=== PATIENT | female | born 1985 ===

== ENCOUNTER 2017-09-16 04:01 | Inpatient (IN) | payer MEDICAID, SELFPAY ==
[2017-09-16 04:19] VITALS: BMI 25.4
[2017-09-16] MEDS ORDERED: Lidocaine 1% Inj (20ml) ONE (04:19)
[2017-09-16] MEDS ORDERED: Oxycodone/Acetaminophen 5/325 mg Tab PO PRN ×6 (04:25→15:42)
[2017-09-16] MEDS ORDERED: Lactated Ringer's 1,000 ML IV SCH (04:30)
[2017-09-16 05:56] LABS: BASO % 0.3 % (0.0-2.0); EOS % 0.3 % (0.0-4.0); HEMATOCRIT 38.6 % (34.0-47.0); LYMPH # 2.4 K/uL (1.0-4.3); LYMPH % 40.5 % (20.0-40.0); MEAN CELL VOLUME 93.7 fl (81.0-99.0); MEAN CORPUSCULAR HEMOGLOBIN 31.1 pg (27.0-31.0); MEAN CORPUSCULAR HGB CONC 33.1 g/dL (33.0-37.0); MEAN PLATELET VOLUME 11.5 fl (7.2-11.7); MONO # 0.4 K/uL (0.0-0.8); MONO % 6.5 % (0.0-10.0); NEUT % 52.4 % (50.0-75.0); NRBC % 0.1 % (0.0-0.0); WHITE BLOOD COUNT 5.8 K/uL (4.8-10.8)
[2017-09-16 06:05] VITALS: O2SAT 100
--- NOTE | 2017-09-16 07:58 | OBADHP ---
Datetime: 09/16/2017 05:26 Admit Comment, IP Provider: 32 y/o Female, , IUP@ 37.5 comes to the [facility] c/o ROM and CTX. +LOF, -BV, +FM, +CTX PNC: Dr. Mendoza PNL: GBS urine positive PMH: Denies PSH: Denies OB; Allg; Denies MEDS: PNV SH; denies alcohol, smoking and illicit drug use FH: denies A/P: 32 y/o Female, , IUP@ 37.5 comes to the [facility] c/o ROM and CTX. - Patient started pushing baby - Delivered in [facility] as soon as she entered in the room - GBS+ Urine, Never started Penicillin due to quick progression Case discussed with Dr. Price --- Manjula Gamino, PGY-1 Pelvic Type - PN: Adequate Extremities - PN: Normal Abdomen - PN: Normal Back - PN: Normal Breast - PN: Normal Lungs - PN: Normal Heart - PN: Normal Thyroid - PN: Normal Neurologic - PN: Normal HEENT - PN: Normal General - PN: Normal Comments, ACOG Physical Exam: GBS + urine HIV/RPR/HepB negative Patient delivered in [facility] Vital Signs Provider: Reviewed IP Chief Complaint: Uterine contractions Genitourinary Exam: Normal DTRs - PN: Normal EGA AdmitDate IP: 37.4 IP Adm Impression: Term, intrauterine IP Admit Plan: Admit to unit
--- NOTE | 2017-09-16 08:07 | OBDS ---
DELIVERY PERSONNEL Delivery Doctor: Cheo Price MD Maitre D: Kathi Khan RN Resident: Stevenson MATERNAL INFORMATION Delivery Anesthesia: None Medications in Delivery: None Estimated Blood Loss (ml): 150 Placenta Cultured: No Maternal Complications: Precipitous Labor (<3hrs) Provider Comments: Normal spontaneous vaginal delivery. Patient arrived at OB ED and precipitously delivered a viable infant male with Apgars of 9 and 9 a t one and 5 minutes respectively. Placenta delivered Spontaneously. No lacerations, perineum intact. Patient tolerated delivery well. medications. Blood loss 200 mL. LABOR SUMMARY EDC: 10/03/2017 00:00 No. Babies in Womb: 1 Attempted: No Labor Anesthesia: None LABOR INFORMATION Reason for Induction: Not Applicable Oxytocin: N/A Group B Beta Strep: Negative Steroids Given: None Reason Steroids Not Administered: Not Applicable MEMBRANES Membranes Rupture Method: Spontaneous Rupture of Membranes: 09/16/2017 02:00 Length of Rupture (hrs): 2.08 Amniotic Fluid Color: Clear Amniotic Fluid Amount: Moderate Amniotic Fluid Odor: Normal STAGES OF LABOR Stage 3 hrs: 0 Stage 3 min: 12 VAGINAL DELIVERY Episiotomy: None Laceration Extension: N/A Laceration Type: None Laceration Repair: Not Applicable Initial Vag Sponge Count: 5 Final Vag Sponge Count: 5 Initial Vag Sharps Count: 0 Final Vag Sharps Count: 0 Sponge Count Correct: Yes Sharps Count Correct: N/A BABY A INFORMATION Infant Delivery Date/Time: 09/16/2017 04:05 Method of Delivery: Vaginal Born in Route : No : N/A Forceps: N/A Vacuum Extraction: N/A Shoulder Dystocia : No SHOULDER DYSTOCIA BABY A Infant Delivery Date/Time: 09/16/2017 04:05 PRESENTATION/POSITION BABY A Presentation: Cephalic Cephalic Presentation: Vertex PLACENTA INFORMATION BABY A Placenta Delivery Time : 09/16/2017 04:17 Placenta Method of Delivery: Spontaneous Placenta Status: Delivered SCORES BABY A Heart Rate 1 min: >100 bpm Resp Effort 1 min: Good Cry Reflex Irritability 1 min: Cough or Sneeze or Pulls Away Muscle Tone 1 min: Active Motion Color 1 min: Body [place], Extremities Blue SCORE 1 MIN: 9 Heart Rate 5 min: >100 bpm Resp Effort 5 min: Good Cry Reflex Irritability 5 min: Cough or Sneeze or Pulls Away Muscle Tone 5 min: Active Motion Color 5 min: Body [place], Extremities Blue SCORE 5 MIN: 9 INFANT INFORMATION BABY A Gestational Age at Delivery: 37.4 Gestational Status: Term Infant Outcome : Liveborn Infant Condition : Stable Infant Sex: Male IDENTIFICATION/MEDS BABY A ID Band Number: [id number] ID Band Location: Left Leg; Left Arm WEIGHT/LENGTH BABY A Infant Birthweight (gms): 2920 Infant Weight (lb): 6 Weight (oz): 7 CORD INFORMATION BABY A No. Cord Vessels: 3 Nuchal Cord : Around Neck x1, Loose Cord Blood Taken: Yes Suction: None
[2017-09-17 07:10] LABS: BASO % 0.7 % (0.0-2.0); EOS % 0.5 % (0.0-4.0); HEMATOCRIT 37.4 % (34.0-47.0); LYMPH # 2.4 K/uL (1.0-4.3); LYMPH % 33.4 % (20.0-40.0); MEAN CELL VOLUME 92.5 fl (81.0-99.0); MEAN CORPUSCULAR HEMOGLOBIN 31.1 pg (27.0-31.0); MEAN CORPUSCULAR HGB CONC 33.7 g/dL (33.0-37.0); MEAN PLATELET VOLUME 11.4 fl (7.2-11.7); MONO # 0.5 K/uL (0.0-0.8); MONO % 6.6 % (0.0-10.0); NEUT # 4.3 K/uL (1.8-7.0); NEUT % 58.8 % (50.0-75.0); NRBC % 0.2 % (0.0-0.0); WHITE BLOOD COUNT 7.2 K/uL (4.8-10.8)
--- NOTE | 2017-09-17 09:55 | OBPPN ---
Datetime: 09/17/2017 07:43 PP Pain Prov: Within normal limits PP Nausea Prov: Denies PP Flatus Prov: Yes PP BM Prov: No PP Heart Prov: Normal PP Lungs Prov: Normal PP Abdomen/Uterus Prov: Normal PP Lochia Prov: Normal PP CVA Tenderness Prov: Normal PP Extremities Prov: Normal PP Impression Prov: Normal progression PP Plan Prov: Continue present management PP Progress Note Prov: PPD #1 32 y/o now seen and examined at bedside this morning.. Pt had an uneventful overnight. Repor ts pain is controlled with pain medications. Voiding freely w/o blood noted.Pt reports passing gas pe r rectum but no BM yet. Ambulating well w/o dizziness. Lochia is similar to menses volume. Pt is mihir stfeeding/bottle feeding w/o difficulty. Denies nausea, vomiting, fever, chills, chest pain or calf p ain. Physical Exam: General: A_O, resting comfortably in bed, NAD HEENT: oral mucosa moist. Lungs: CTA B/L, no wheezing, rhonchi or rales CVS: RRR, S1, S2 ABD: ND, +BS, firm fundus @ umbilical level. Soft, appropriate TTP. EXT: no edema, negative Madelin's sign, Neuro/psych: AAOX3. assessment: 32 y/o now doing well on PDD 1 Plan: OOB w/ caution Regular diet Percocet and Ibuprofen for pain management Encourage and ambulatory Anticipate discharge tomorrow Sultan Purdy, PGY1 OB Hospitalist on-call : On rounds this morning, I saw and examined this patient. Agree with note . CLAIR Vital Signs Provider PP: Reviewed; Within Normal Limits
--- NOTE | 2017-09-18 09:20 | OBDCSUM ---
Datetime: 09/18/2017 09:18 Discharged to, Provider: Home Follow up at, Provider: Clinic Disch Instr Activity: Normal activity; May Shower Disch Instr Diet: Regular Discharge Instructions, Provider: Routine instructions given Discharge Diagnosis, Provider: Term Delivered Discharge Time: 09/18/2017 09:18 Follow up in weeks, Provider: 6 weeks Contraception discussed, Prov: No Disch Activity Restrictions: No exercising; No lifting; No sexual activity; Nothing in vagina - Inte rcourse, tampons, douche
--- NOTE | 2017-09-18 09:20 | OBPPN ---
Datetime: 09/18/2017 09:14 PP Pain Prov: Within normal limits PP Abdomen/Uterus Prov: Normal PP Lochia Prov: Normal PP Extremities Prov: Normal PP Progress Prov: Normal PP Impression Prov: Normal progression PP Plan Prov: Discharge PP Progress Note Prov: PPD 2 s/p , doing well, breast and bottle feeding Discharge home today Vital Signs Provider PP: Reviewed
[2017-09-18 18:06] VITALS: BP 131/73; PULSE 69; RESP 20; TEMP 98.4
== END 2017-09-18 13:40 | disposition home or self-care (01) | DRG 373 ==
LOC: H.EROB2 04:01 → H.L&D 04:22 → H.OB/GYN 15:29
PROVIDERS: ADMIT Obstetrics & Gynecology; ATTEND Obstetrics & Gynecology
PROC: 10E0XZZ Delivery of Products of Conception, External Approach (ICD-10-PCS; principal; 2017-09-16)
PROC: 4A1HXCZ Monitoring of Products of Conception, Cardiac Rate, External Approach (ICD-10-PCS; 2017-09-16)
DX: O62.3 Precipitate labor (principal); O69.81X0 Labor and delivery complicated by cord around neck, without compression, not applicable or unspecified; Z37.0 Single live birth; O99.824 Streptococcus B carrier state complicating childbirth; Z3A.37 37 weeks gestation of pregnancy